=== PATIENT | male | born 1985 | race American Indian/Alaskan Native ===

== ENCOUNTER 2018-03-28 01:09 | Emergency (ER) | payer BC ==
[2018-03-28 01:16] VITALS: BP 137/88
[2018-03-28] MEDS ORDERED: MOTRIN PO ONE (02:27)
--- NOTE | 2018-03-28 03:05 | XRay Report ---
FINAL REPORT EXAM: XR CALCANEOUS 2+V RT HISTORY: Right heel pain COMPARISON: None available. FINDINGS: Two views the calcaneus obtained. No discrete fracture line. Boehler's angle is preserved. No calcaneal spurs. IMPRESSION: No acute bony findings.
--- NOTE | 2018-03-28 03:06 | XRay Report ---
FINAL REPORT EXAM: XR HAND 2V RT HISTORY: Right hand swelling and pain COMPARISON: None available. FINDINGS: Two views the right hand obtained. There is an oblique fracture extending through the 5th metacarpal neck with anterior angulation of the 5th metacarpal head. There is a 2nd oblique fracture line extending through the radial base of the 5th metacarpal body. There may be intra-articular extension. Remaining bony structures are intact. Joint spaces are preserved. IMPRESSION: Fractures through the 5th metacarpal neck and proximal body of the 5th metacarpal bone.
[2018-03-28] MEDS ORDERED: NORCO 5/325 PO ONE (06:32)
--- NOTE | 2018-03-28 06:38 | Emergency Department Report ---
ED Upper Extremity Inj HPI - General Chief Complaint: Extremity Injury, Upper Stated Complaint: RT HAND/ANKLE PAIN Time Seen by Provider: 03/28/18 06:11 Source: patient Mode of arrival: Ambulatory Limitations: No Limitations - History of Present Illness Initial Comments: Patient 32-year-old -Thai male states he punched a door with his right hand on Tuesday yesterday now with pain erythema dorsal right fifth metacarpal range of motion restricted by pain to pinky is mild erythema and ecchymosis no wound or bleeding and states some mild tingling pain is 6/10 to movement and palpation while attending a splenic MD Complaint: Injury to:: right Onset/Timin -: days(s) Other Extremity Injury: Hand: Right Other Injuries: none Place: home Severity scale (0 -10): 6 Improves With: rest Worsens With: movement of extremity Context: direct blow (partial window with fist) Associated Symptoms: heard/felt popping sensat. denies: suspects foreign body - Related Data Previous Rx's Medication Instructions Recorded Last Taken Type Butalb/Acetamin/Caff 50-325-40 1 each PO Q6HR PRN #14 tablet 09/04/16 Unknown Rx [Fioricet] Acetaminophen/Codeine [Tylenol 1 tab PO Q8H PRN #15 tab 03/28/18 Unknown Rx /Codeine # 3 tab] Allergies Allergy/AdvReac Type Severity Reaction Status Date / Time No Known Allergies Allergy Verified 06/14/14 18:27 ED Review of Systems ROS: Stated complaint: RT HAND/ANKLE PAIN Other details as noted in HPI Constitutional: denies: chills, fever Eyes: denies: eye pain, eye discharge, vision change ENT: denies: ear pain, throat pain Respiratory: denies: cough, shortness of breath, wheezing Cardiovascular: denies: chest pain, palpitations Endocrine: no symptoms reported Gastrointestinal: denies: abdominal pain, nausea, diarrhea Genitourinary: denies: urgency, dysuria Musculoskeletal: joint swelling, myalgia. denies: back pain, arthralgia Skin: denies: rash, lesions Neurological: denies: headache, weakness, paresthesias Psychiatric: denies: anxiety, depression Hematological/Lymphatic: denies: easy bleeding, easy bruising ED Past Medical Hx - Past Medical History Hx Headaches / Migraines: Yes Hx Dementia: No - Surgical History Past Surgical History?: No - Social History Smoking Status: Never Smoker Substance Use Type: None - Medications Home Medications: Home Medications Medication Instructions Recorded Confirmed Last Taken Type Butalb/Acetamin/Caff 50-325-40 1 each PO Q6HR PRN #14 tablet 09/04/16 Unknown Rx [Fioricet] Acetaminophen/Codeine [Tylenol 1 tab PO Q8H PRN #15 tab 03/28/18 Unknown Rx /Codeine # 3 tab] ED Physical Exam - General Limitations: No Limitations General appearance: alert, in no apparent distress - Head Head exam: Present: atraumatic, normocephalic - Eye Eye exam: Present: normal appearance - ENT ENT exam: Present: mucous membranes moist - Neck Neck exam: Present: normal inspection - Respiratory Respiratory exam: Present: normal lung sounds bilaterally. Absent: respiratory distress - Cardiovascular Cardiovascular Exam: Present: regular rate, normal rhythm. Absent: systolic murmur, diastolic murmur, rubs, gallop - GI/Abdominal GI/Abdominal exam: Present: soft, normal bowel sounds - Rectal Rectal exam: Present: deferred - Extremities Exam Extremities exam: Present: tenderness, normal capillary refill, joint swelling. Absent: pedal edema, calf tenderness - Expanded Upper Extremity Exam Right Hand Wrist exam: Present: tenderness, swelling, ecchymosis, deformity, erythema. Absent: abrasion, laceration, crepidus, dislocation, amputation, nail avulsion, subungual hematoma Neuro motor exam: Present: wrist extension intact, thumb opposition intact, thumb IP flexion intact, thumb adduction intact, fingers 2-5 abduction intact Neurosensory exam: Present: 2-point discrimination, radial nerve intact, ulnar nerve intact, median nerve intact Vascular: Present: normal capillary refill, radial pulse, brachial pulse, ulnar pulse. Absent: vascular compromise, Pallo, pulse deficit radial art, pulse deficit ulnar art, pulse deficit brachial art - Back Exam Back exam: Present: normal inspection, full ROM. Absent: tenderness - Neurological Exam Neurological exam: Present: alert, oriented X3, CN II-XII intact, normal gait, reflexes normal - Psychiatric Psychiatric exam: Present: normal affect, normal mood - Skin Skin exam: Present: warm, dry, intact, normal color. Absent: rash ED Course Vital Signs 03/28/18 01:15 Temperature 99.0 F Pulse Rate 111 H Respiratory 18 Rate Blood Pressure 137/88 O2 Sat by Pulse 95 Oximetry ED Medical Decision Making - Radiology Data Radiology results: report reviewed, image reviewed Fractures through the fifth metacarpal neck and proximal body Mildly displaced, he'll no fraction of heel spurs - Medical Decision Making His boxshreya's fracture mildly displaced closed fifth metacarpal plan Velcro wrist splint Tylenol 3 when necessary pain follow with orthopedics in 2-3 days patient verbalizes agreement and understanding with same will be DC'd home in stable condition at this time Critical care attestation.: If time is entered above; I have spent that time in minutes in the direct care of this critically ill patient, excluding procedure time. ED Disposition Clinical Impression: Boxers fracture Qualifiers: Encounter type: initial encounter Fracture type: closed Qualified Code(s): S62.339A - Displaced fracture of neck of unspecified metacarpal bone, initial encounter for closed fracture Disposition: DC-01 TO HOME OR SELFCARE Is pt being admited?: No Does the pt Need Aspirin: No Condition: Stable Instructions: Hand Fracture (ED), Boxer Fracture (ED) Prescriptions: Acetaminophen/Codeine [Tylenol /Codeine # 3 tab] 1 tab PO Q8H PRN #15 tab PRN Reason: pain Referrals: CLARA GAMEZ MD [Staff Physician] - 3-5 Days Forms: Work/School Release Form(ED) Time of Disposition: 06:43
== END 2018-03-28 06:59 | disposition home or self-care (01) ==
LOC: ED 01:09
DX: S62.336A Displaced fracture of neck of fifth metacarpal bone, right hand, initial encounter for closed fracture (principal); G43.909 Migraine, unspecified, not intractable, without status migrainosus; Z79.899 Other long term (current) drug therapy; W20.8XXA Other cause of strike by thrown, projected or falling object, initial encounter; Y93.89 Activity, other specified; Y99.8 Other external cause status; Y92.018 Other place in single-family (private) house as the place of occurrence of the external cause